=== PATIENT | male | born 1940 | race Caucasian/White ===

== ENCOUNTER → 2018-01-29 08:06 | Outpatient (CLI) | payer MEDICARE, BC, SELFPAY ==
--- NOTE | 2018-01-29 | DI.US.S_ITS ---
PROCEDURE: US RENAL COMPLETE INDICATIONS: CHECKING FOR RENAL CYST TECHNIQUE: Real-time scanning was performed of the kidneys and bladder, with image documentation. COMPARISON: [facility], MR, MR LUMBAR SPINE WITHOUT CONTRAST, 10/08/2014, 13:39. FINDINGS: Kidneys: Kidneys are normal in size. Right kidney measures 10.3 cm long; left kidney measures 10.2 cm long. Right renal cortical thickness is 1.4 cm; left renal cortical thickness is 1.6 cm. Renal cortical echotexture is normal. No hydronephrosis or nephrolithiasis. No suspicious solid mass lesions. Right renal superior pole cyst measuring 2.2 cm and there is a left renal superior pole cyst measuring up to 3.0 cm. Bladder: Pre-void bladder volume is 111 mL. Post-void residual is 4.0 mL. Pre-void images demonstrate no intraluminal masses or stones. On pre-void images, bilateral ureteral jets are noted with color Doppler interrogation. (Of note, ureteral jets may not be detectable in up to 25% of cases due to insufficient differences in specific gravity between ureteral and bladder urine). Miscellaneous: No free pelvic fluid. IMPRESSION: Bilateral renal cysts otherwise normal appearance of the kidneys. Dictated by: Scooter KEENAN Interpreted: Yasmeen Brumfield MD on 01/29/2018 at 16:03 Approved by: Yasmeen Brumfield MD, PhD on 01/29/2018 at 16:27
== END ==
PROVIDERS: PCP Nurse Practitioner Family; Visit Provider Nurse Practitioner Family
DX: M54.5 Low back pain (principal); N28.1 Cyst of kidney, acquired
CPT/HCPCS: 76770

== ENCOUNTER → 2018-02-01 19:06 | Outpatient (CLI) | payer MEDICARE, BC, SELFPAY ==
--- NOTE | 2018-02-01 | DI.MRI.S_ITS ---
PROCEDURE: MR LUMBAR SPINE WO CON INDICATIONS: LOW BACK PAIN, CHECKING FOR RENAL CYSTS TECHNIQUE: Noncontrast sagittal T1 spin echo and T2 fast echo, sagittal STIR, axial T1 and T2 fast spin echo through the lumbar spine. In cases with scoliosis, additional coronal T2 fast spin echo may be performed. COMPARISON: [facility], , US RENAL COMPLETE, 01/29/2018, 13:05. FINDINGS: Image quality: Excellent. Alignment and Curvature: There is mild L1-L2 and L2-L3 retrolisthesis. There is trace L3-L4 retrolisthesis. There is trace L4-L5 anterolisthesis. Convex left curvature lumbar spine is noted. Bone Marrow: Reactive endplate change is noted adjacent to the L2-L3, L3-L4 and L5-S1 discs. No acute vertebral body compression fractures. Spinal Cord: Conus medullaris terminates at the L1 level. Visualized cord demonstrates normal signal and size. Paraspinous Soft Tissues: No paravertebral masses. Bilateral renal cysts are noted. L1-L2: Loss of disc signal and height. Mild, diffuse disc bulge. Mild bilateral facet hypertrophy. Mild narrowing of the central canal. Mild bilateral neural foraminal narrowing. No neural impingement. L2-L3: Loss of disc signal and slight loss of disc height. Moderate, diffuse disc bulge. Mild bilateral facet hypertrophy. Moderate narrowing of the central canal. Moderate bilateral neural foraminal narrowing. No neural impingement. L3-L4: Loss of disc signal and height. Mild, diffuse disc bulge. Mild facet and moderate ligamentum flavum hypertrophy. Moderate narrowing of the central canal. Moderate right and [id number] left neural foraminal narrowing. No neural impingement. L4-L5: Loss of disc signal. Mild diffuse disc bulge. Severe bilateral facet hypertrophy. Mild ligamentum flavum hypertrophy. Moderate to severe narrowing of the central canal. Mild to moderate right and moderate left neural foraminal narrowing. L5-S1: Loss of disc signal and height. Mild, diffuse disc bulge. Mild right and moderate left facet hypertrophy. No central stenosis. Moderate right and severe left neural foraminal narrowing with flattening of the exiting left L5 nerve root. IMPRESSION: 1. Multilevel degenerative disc disease. 2. Multilevel facet arthropathy. 3. Moderate to severe L4-L5 central canal narrowing. Moderate L2-L3 and L3-L4 central canal narrowing. Mild L1-L2 Central canal narrowing. 4. Moderate right and severe left L5-S1 neural foraminal narrowing. Moderate right and moderate to severe left L3-L4 neural foraminal narrowing. Moderate bilateral L2-L3 neural foraminal narrowing. [id number] right and moderate left L4-L5 neural foraminal narrowing. Mild bilateral L1-L2 neural foraminal narrowing. 5. Flattened deformity exiting left L5 nerve root secondary to neural foraminal narrowing. Please correlate with clinical data. 6. Bilateral renal cysts which are incompletely characterized by lumbar spine MRI. Renal cysts are are not significantly changed compared to prior renal ultrasound. If there is clinical concern for a renal cystic neoplasm, then CT scan of the abdomen with and without contrast (renal protocol) should be considered for further evaluation. Dictated by: Yasmeen Brumfield MD, PhD on 02/02/2018 at 9:27 Approved by: Yasmeen Brumfield MD, PhD on 02/02/2018 at 9:42
== END ==
PROVIDERS: PCP Nurse Practitioner Family; Visit Provider Orthopaedic Surgery
DX: M54.5 Low back pain (principal); N28.1 Cyst of kidney, acquired; M51.36 Other intervertebral disc degeneration, lumbar region; M51.37 Other intervertebral disc degeneration, lumbosacral region; M47.816 Spondylosis without myelopathy or radiculopathy, lumbar region; M47.817 Spondylosis without myelopathy or radiculopathy, lumbosacral region; M48.061 Spinal stenosis, lumbar region without neurogenic claudication; M48.07 Spinal stenosis, lumbosacral region
CPT/HCPCS: 72148

== ENCOUNTER → 2018-08-16 09:41 | Outpatient (CLI) | payer MEDICARE, BC, SELFPAY ==
--- NOTE | 2018-08-16 | DI.US.S_ITS ---
PROCEDURE: US RENAL COMPLETE INDICATIONS: 6 MONTH RENAL CYST FOLLOW UP TECHNIQUE: Real-time scanning was performed of the kidneys and bladder, with image documentation. COMPARISON: [facility], , RENAL COMPLETE, 01/29/2018, 13:05. FINDINGS: Kidneys: Kidneys are normal in size. Right kidney measures 10.7 cm long; left kidney measures 9.9 cm long. Right renal cortical thickness is 1.1 cm; left renal cortical thickness is 1.3 cm. Renal cortical echotexture is normal. No hydronephrosis or nephrolithiasis. No suspicious solid mass lesions. There is a simple appearing 2.2 cm cyst superior right kidney. The superior pole the left kidney, there is a 2.7 cm simple appearing cyst seen. Bladder: Pre-void bladder volume is 258 mL. Post-void residual is 31 mL. Pre-void images demonstrate no intraluminal masses or stones. On pre-void images, both ureteral jets are noted with color Doppler interrogation. (Of note, ureteral jets may not be detectable in up to 25% of cases due to insufficient differences in specific gravity between ureteral and bladder urine). Miscellaneous: No free pelvic fluid. IMPRESSION: Bilateral simple appearing cysts are seen, which are similar to the prior examination. Small post residual, 31 cc. Dictated by: Anibal Ragsdale M.D. on 08/16/2018 at 11:52 Approved by: Anibal Ragsdale M.D. on 08/16/2018 at 11:53
== END ==
PROVIDERS: PCP Nurse Practitioner Family; Visit Provider Nurse Practitioner Family
DX: N28.1 Cyst of kidney, acquired (principal)
CPT/HCPCS: 76770

== ENCOUNTER 2018-08-22 07:58 | Emergency (ER) | payer MEDICARE, BC, SELFPAY ==
[2018-08-22 08:08] VITALS: BP 98/59; PULSE 82; RESP 18; TEMP 36.8; O2SAT 100; BMI 26.4
[2018-08-22 08:30] VITALS: BP 89/55; PULSE 78; RESP 17; O2SAT 94
[2018-08-22 08:50] VITALS: BP 89/39; PULSE 70; RESP 18; O2SAT 94
[2018-08-22 09:01] VITALS: BP 94/53; PULSE 78; RESP 18; O2SAT 98
--- NOTE | 2018-08-22 09:09 | ED.MALEGU ---
HPI - Male Genitourinary General Chief complaint: Urogenital-Male Stated complaint: May have flu, can't pee Time Seen by Provider: 08/22/18 08:35 Source: patient and family Mode of arrival: ambulatory Limitations: no limitations History of Present Illness HPI Narrative: Patient comes emergency department complaining of chills, body aches, and the urge to urinate but being unable to do so. Patient states that he has been able to get only a small amount of urine out, and there is some dysuria associated with this. Patient is known to have a history of benign prostatic hypertrophy, but states he has never had an issue with urination before. No measured fevers. No nausea or vomiting. No diarrhea. No cough, sore throat, rhinorrhea. No headaches. No other complaints at this time. Patient does note that he does not think he has been drinking very much lately because he has not felt like it. Related Data Home Medications Medication Instructions Recorded Confirmed aspirin [Enteric Coated Aspirin] 81 mg PO DAILY 08/22/18 08/22/18 atorvastatin 40 mg PO QPM 08/22/18 08/22/18 clopidogrel [Plavix] 75 mg PO DAILY 08/22/18 08/22/18 metoprolol tartrate 25 mg PO DAILY 08/22/18 08/22/18 tvmlknkgjwzf-sakvzcra-[id number] 1 tab PO DAILY 08/22/18 08/22/18 omeprazole 10 mg PO DAILY 08/22/18 08/22/18 tamsulosin 0.4 mg PO DAILY 08/22/18 08/22/18 Previous Rx's Medication Instructions Recorded ciprofloxacin HCl [Cipro] 500 mg PO BID #14 tab 08/22/18 Allergies Allergy/AdvReac Type Severity Reaction Status Date / Time No Known Drug Allergies Allergy Verified 08/22/18 08:16 Review of Systems Constitutional Reports body ache(s), Denies chills, Denies fever(s), Denies lethargy and Denies weakness Comments: Chills Eyes Denies change in vision, Denies eye discharge, Denies irritation and Denies loss of vision ENT Ears, Nose, Mouth, and Throat: Denies change in voice, Denies neck pain and Denies sore throat Cardiovascular Denies chest pain, Denies irregular heart rhythm, Denies lightheadedness, Denies palpitations, Denies dyspnea, Denies dyspnea on exertion and Denies orthopnea Respiratory Denies cough, Denies dyspnea, Denies dyspnea on exertion and Denies wheezing Gastrointestinal Gastrointestinal: Denies abdominal pain, Denies change in bowel habits, Denies diarrhea, Denies nausea and Denies vomiting Genitourinary Denies hematuria, Reports difficulty urinating, Denies flank pain, Denies urinary incontinence and Reports urinary urgency Musculoskeletal Denies neck pain Integumentary/Breasts Denies pruritus, Denies erythema, Denies rash and Denies wounds Neurologic Denies confusion, Denies loss of vision and Denies weakness Psychiatric Denies anxiety, Denies confusion, Denies depression, Denies homicidal ideation and Denies suicidal ideation Endocrine Denies palpitations Hematologic/Lymphatic Denies easy bruising Allergic/Immunologic Denies wheezing [facility] Medical History Hyperlipidemia (Acute) HTN (hypertension) (Acute) Surgical History No pertinent past surgical history (Acute) Social History Smoking Status: Former smoker Social History Smoking Status: Former smoker Exam Initial Vital Signs Initial Vital Signs: Vital Signs Temperature 98.3 F 08/22/18 08:08 Pulse Rate 82 08/22/18 08:08 Respiratory Rate 18 08/22/18 08:08 Blood Pressure 98/59 L 08/22/18 08:08 Pulse Oximetry 100 08/22/18 08:08 Const General: cooperative and well developed Nutritional Appearance: well nourished Orientation: alert, awake, oriented x3 and not confused [facility] Head: normocephalic and atraumatic Ears: external ears normal Nose: external nose normal and No nasal discharge Face and sinus: face symmetric and No dry mucous membranes Mouth: oral mucosae normal and moist mucous membranes Teeth and gingiva: dentition normal Eyes General: appearance normal, both eyes and all related structures Eyelids: eyelids normal Conjunctivae: conjunctivae normal Sclera: sclerae normal Pupils: PERRL EOM: EOM intact bilaterally Neck Neck: normal visual inspection, trachea midline, No lymphadenopathy, No midline deformity and No JVD Lymphatic: No lymphedema Chest Chest: normal inspection of the chest Resp Effort & Inspection: normal respiratory effort, able to speak in complete sentences, no respiratory distress and no use of accessory muscles Auscultation: clear to auscultation bilaterally, no rales, no rhonchi and no wheezes Cardio Rate: regular rate Rhythm: regular rhythm Heart Sounds: no click, no gallops, no murmurs and no rubs Pulses: normal peripheral pulses GI Inspection: non-distended Palpation: soft, no hepatosplenomegaly, No guarding, No pulsatile mass and No tender Auscultation: normal bowel sounds Back/Spine/Pelvis Back: No CVA tenderness Cervical Spine: cervical ROM normal and No pain with cervical ROM Thoracic/Lumbar Spine: thoracic and lumbar spine normal to inspection Skin General: no rashes or lesions noted, No jaundice and No petechiae Neuro General: alert, oriented x3, gait normal and no focal motor deficits Speech: speech normal Extrem General: full ROM, no clubbing, cyanosis or edema, no pedal edema and no calf tenderness Psych Appearance: well kempt Mental Status: mental status grossly normal Attitude: cooperative Thought Content: normal and suicidality Judgment: judgment good Course Course Narrative: The patient was started on IV fluids, as I suspected, given that his bladder scan only showed 65 cc of urine, that he was somewhat dehydrated. Patient was able to spontaneously urinate after this. Patient was worked up with labs and urinalysis, and found to be positive for urinary tract infection. He was treated with ciprofloxacin for this. I discussed with the patient and his the findings and symptomatic management at home. We have also discussed the usual indications for return. We have discussed that if his prostatic hypertrophy does become an issue as far as recurrent urinary retention, that he should probably follow up with Urology. Patient has been given contact information for Urology Clinic in case he needs this follow-up. Orders Ordered: Discontinued Medications Ciprofloxacin (Cipro) 500 mg PO NOW ONE Stop: 08/22/18 10:14 Last Admin: 08/22/18 10:35 Dose: 500 mg Sodium Chloride (Normal Saline 0.9%) 1,000 mls @ 1,000 mls/hr IV BOLUS ONE Stop: 08/22/18 10:08 Last Infusion: 08/22/18 10:35 Dose: 0 mls/hr Admin: 08/22/18 09:25 Dose: 1,000 mls/hr Vital Signs - 8 hr 08/22/18 08:08 08/22/18 08:30 08/22/18 09:01 Temperature 98.3 F Pulse Rate 82 78 78 Respiratory Rate 18 17 18 Blood Pressure 98/59 L Blood Pressure [Right Arm] 89/55 L 94/53 L Pulse Oximetry 100 94 98 MDM - Male Genitourinary Medical Records Attestation: I reviewed the patient's medical records. Lab Data Attestation: I reviewed the patient's lab results. Result diagrams: 08/22/18 09:10 08/22/18 09:10 Lab Results 08/22/18 08/22/18 08/22/18 Range/Units 09:10 09:10 09:10 WBC 17.2 H (4.5-11.0) X10^3/uL RBC 3.80 L (4.5-5.9) X10^6/uL Hgb 12.4 L (13.5-17.5) g/dL Hct 36.7 L (41-53) % MCV 96.6 (80-100) fL MCH 32.6 (26-34) PG MCHC 33.7 (30-36) % RDW 13.0 (11.6-14.8) % Plt Count 158 (150-400) X10^3/uL Neut % (Auto) 87.2 H (50-75) % Lymph % (Auto) 4.2 L (25-40) % [place] % (Auto) 8.3 (3-14) % Eos % (Auto) 0.1 L (2-4) % Baso % (Auto) 0.2 (0-2) % Neut # (Auto) 64827 H (3898-0979) /uL Lymph # (Auto) 700 L (5299-0535) /uL [place] # (Auto) 1400 H (0-900) /uL Eos # (Auto) 0 (0-450) /uL Baso # (Auto) 0 (0-100) /uL Sodium 137 (137-145) mmol/L Potassium 4.0 (3.4-5.1) mmol/L Chloride 102 (98-107) mmol/L Carbon Dioxide 25 (22-32) mmol/L BUN 25 H (9-20) mg/dL Creatinine 1.30 H (0.66-1.25) mg/dL Estimated GFR 53.7 L (>60) mL/min BUN/Creatinine Ratio 19.2 (6-22) Glucose 116 H (80-110) mg/dL Lactate 1.2 (0.7-2.1) mmol/L Calcium 9.4 (8.4-10.2) mg/dL Total Bilirubin 1.5 H (0.2-1.3) mg/dL AST 24 (17-59) IU/L ALT 29 (21-72) IU/L Alkaline Phosphatase 73 (38-126) U/L Total Protein 7.4 (6.3-8.2) g/dL Albumin 4.1 (3.5-5.0) g/dL Globulin 3.3 (1.7-4.1) g/dL Albumin/Globulin Ratio 1.2 (1.0-2.8) Urine Color Urine Appearance Urine pH (4.5-8.0) Ur Specific [place] (1.000-1.035) Urine Protein (Negative) Urine Glucose (UA) (Negative) g/dL Urine Ketones (NEGATIVE) Urine Occult Blood (Negative) Urine Nitrate (Negative) Urine Bilirubin (NEGATIVE) Urine Urobilinogen (0.2) E.U./dL Ur Leukocyte Esterase (NEGATIVE) Urine RBC (0-5/HPF) Urine WBC (0-5/HPF) Ur Squamous Epith Cells (0-5/HPF) Urine Bacteria (None) Ur Culture Indicated? 08/22/18 Range/Units 09:21 WBC (4.5-11.0) X10^3/uL RBC (4.5-5.9) X10^6/uL Hgb (13.5-17.5) g/dL Hct (41-53) % MCV (80-100) fL MCH (26-34) PG MCHC (30-36) % RDW (11.6-14.8) % Plt Count (150-400) X10^3/uL Neut % (Auto) (50-75) % Lymph % (Auto) (25-40) % [place] % (Auto) (3-14) % Eos % (Auto) (2-4) % Baso % (Auto) (0-2) % Neut # (Auto) (6743-7187) /uL Lymph # (Auto) (4053-2162) /uL [place] # (Auto) (0-900) /uL Eos # (Auto) (0-450) /uL Baso # (Auto) (0-100) /uL Sodium (137-145) mmol/L Potassium (3.4-5.1) mmol/L Chloride (98-107) mmol/L Carbon Dioxide (22-32) mmol/L BUN (9-20) mg/dL Creatinine (0.66-1.25) mg/dL Estimated GFR (>60) mL/min BUN/Creatinine Ratio (6-22) Glucose (80-110) mg/dL Lactate (0.7-2.1) mmol/L Calcium (8.4-10.2) mg/dL Total Bilirubin (0.2-1.3) mg/dL AST (17-59) IU/L ALT (21-72) IU/L Alkaline Phosphatase (38-126) U/L Total Protein (6.3-8.2) g/dL Albumin (3.5-5.0) g/dL Globulin (1.7-4.1) g/dL Albumin/Globulin Ratio (1.0-2.8) Urine Color Yellow Urine Appearance Cloudy Urine pH 5.0 (4.5-8.0) Ur Specific [place] 1.025 (1.000-1.035) Urine Protein 1+ H (Negative) Urine Glucose (UA) Negative (Negative) g/dL Urine Ketones Negative (NEGATIVE) Urine Occult Blood 3+ H (Negative) Urine Nitrate Positive (Negative) Urine Bilirubin Negative (NEGATIVE) Urine Urobilinogen 0.2 (0.2) E.U./dL Ur Leukocyte Esterase 2+ H (NEGATIVE) Urine RBC 0-1/hpf (0-5/HPF) Urine WBC >100/hpf H (0-5/HPF) Ur Squamous Epith Cells None seen (0-5/HPF) Urine Bacteria Many (>30) H (None) Ur Culture Indicated? Specimen cultured Discharge Plan Departure Patient Disposition: Home Clinical Impression: Urinary tract infection Qualifiers: Urinary tract infection type: acute cystitis Hematuria presence: without hematuria Qualified Code(s): N30.00 - Acute cystitis without hematuria Discharge Date/Time: 08/22/18 10:40 Interventions: ED Discharge Assessment Last Done: 08/22/18 10:40 Instructions: DI for Urinary Tract Infection (UTI) Activity Restrictions/Additional Instructions: Urinalysis showed strong evidence of infection. Please take the antibiotics as directed, and drink plenty of fluids. Prescriptions: New ciprofloxacin HCl [Cipro] 500 mg tablet 500 mg PO BID Qty: 14 RF: 0 No Action atorvastatin 40 mg Tablet 40 mg PO QPM RF: 0 aspirin [Enteric Coated Aspirin] 81 mg Tablet,Delayed Release (Dr/Ec) 81 mg PO DAILY RF: 0 clopidogrel [Plavix] 75 mg Tablet 75 mg PO DAILY RF: 0 omeprazole 10 mg Capsule,Delayed Release(Dr/Ec) 10 mg PO DAILY RF: 0 tamsulosin 0.4 mg Capsule 0.4 mg PO DAILY RF: 0 alzmxejfyapm-scepkltc-vyonhq Tablet 1 tab PO DAILY RF: 0 metoprolol tartrate 25 mg Tablet 25 mg PO DAILY RF: 0 Referrals: [facility] Urology [Provider Group] Brianne Summers ARNP [Primary Care Provider] -
[2018-08-22] MEDS: SODIUM CHLORIDE 0.9% 1,000 ML 1000 ML IV (09:25)
[2018-08-22 09:32] LABS: Add Manual Diff / Slide Review NO; Basophils Absolute Auto 0 /uL (0-100); Basophils Percent Auto 0.2 % (0-2); Eosinophils Absolute Auto 0 /uL (0-450); Eosinophils Percent Auto 0.1 % (2-4); Hematocrit 36.7 % (41-53); Hemoglobin 12.4 g/dL (13.5-17.5); Lymphocytes Absolute Auto 700 /uL (1100-4500); Lymphocytes Percent Auto 4.2 % (25-40); Mean Corpuscular HGB Conc 33.7 % (30-36); Mean Corpuscular Hemoglobin 32.6 PG (26-34); Mean Corpuscular Volume 96.6 fL (80-100); Monocytes Absolute Auto 1400 /uL (0-900); Monocytes Percent Auto 8.3 % (3-14); Neutrophils Absolute Auto 15000 /uL (1500-7000); Neutrophils Percent Auto 87.2 % (50-75); Platelet Count 158 X10^3/uL (150-400); White Blood Cell Count 17.2 X10^3/uL (4.5-11.0)
[2018-08-22 09:34] LABS: Appearance Urine UA CLOUDY; Bilirubin Urine UA NEGATIVE (NEGATIVE); Color Urine UA YELLOW; Glucose Urine UA NEGATIVE (Negative); Ketones Urine UA NEGATIVE (NEGATIVE); Leukocyte Esterase Urine UA 2+ (NEGATIVE); Nitrite Urine UA POSITIVE (Negative); Occult Blood Urine UA 3+ (Negative); Protein Urine UA 1+ (Negative); Specific Gravity Urine UA 1.025 (1.000-1.035); Urobilinogen Urine UA 0.2 E.U./dL (0.2)
[2018-08-22 09:43] LABS: Bacteria Urine Many (>30); Culture Indicated Urine Specimen Cultured; RBC Urine 0-1/HPF (0-5/HPF); Squamous Epithelial Cell Urine None Seen (0-5/HPF); WBC Urine >100/HPF (0-5/HPF)
[2018-08-22 09:45] LABS: Lactate (Lactic Acid) 1.2 mmol/L (0.7-2.1)
[2018-08-22 09:46] LABS: Alanine Aminotransferase 29 IU/L (21-72); Albumin 4.1 g/dL (3.5-5.0); Albumin Globulin Ratio 1.2 (1.0-2.8); Alkaline Phosphatase 73 U/L (38-126); Aspartate Aminotransferase 24 IU/L (17-59); BUN Creatinine Ratio 19.2 (6-22); Bilirubin Total 1.5 mg/dL (0.2-1.3); Blood Urea Nitrogen 25 mg/dL (9-20); Calcium 9.4 mg/dL (8.4-10.2); Carbon Dioxide 25 mmol/L (22-32); Chloride 102 mmol/L (98-107); Estimated Glomerular Filt Rate 53.7 mL/min (>60); Globulin 3.3 g/dL (1.7-4.1); Glucose 116 mg/dL (80-110); HEMOLYSIS < 15 (0-50); Sodium 137 mmol/L (137-145); Total Protein 7.4 g/dL (6.3-8.2)
[2018-08-22 10:18] VITALS: BP 109/58; PULSE 64; RESP 14; TEMP 36.3; O2SAT 98
[2018-08-22] MEDS: CIPROFLOXACIN 500 MG TABLET PO (10:35)
--- NOTE | 2018-08-24 12:00 | ED_ITS ---
HPI - Male Genitourinary General Chief complaint: Urogenital-Male Stated complaint: May have flu, can't pee Time Seen by Provider: 08/22/18 08:35 Source: patient and family Mode of arrival: ambulatory Limitations: no limitations History of Present Illness HPI Narrative: Patient comes emergency department complaining of chills, body aches, and the urge to urinate but being unable to do so. Patient states that he has been able to get only a small amount of urine out, and there is some dysuria associated with this. Patient is known to have a history of benign prostatic hypertrophy, but states he has never had an issue with urination before. No measured fevers. No nausea or vomiting. No diarrhea. No cough, sore throat, rhinorrhea. No headaches. No other complaints at this time. Patient does note that he does not think he has been drinking very much lately because he has not felt like it. Related Data Home Medications Medication Instructions Recorded Confirmed aspirin [Enteric Coated Aspirin] 81 mg PO DAILY 08/22/18 08/22/18 atorvastatin 40 mg PO QPM 08/22/18 08/22/18 clopidogrel [Plavix] 75 mg PO DAILY 08/22/18 08/22/18 metoprolol tartrate 25 mg PO DAILY 08/22/18 08/22/18 hpwsefteyrbk-ywrxnptv-vtkhto 1 tab PO DAILY 08/22/18 08/22/18 omeprazole 10 mg PO DAILY 08/22/18 08/22/18 tamsulosin 0.4 mg PO DAILY 08/22/18 08/22/18 Previous Rx's Medication Instructions Recorded ciprofloxacin HCl [Cipro] 500 mg PO BID #14 tab 08/22/18 Allergies Allergy/AdvReac Type Severity Reaction Status Date / Time No Known Drug Allergies Allergy Verified 08/22/18 08:16 Review of Systems Constitutional Reports body ache(s), Denies chills, Denies fever(s), Denies lethargy and Denies weakness Comments: Chills Eyes Denies change in vision, Denies eye discharge, Denies irritation and Denies loss of vision ENT Ears, Nose, Mouth, and Throat: Denies change in voice, Denies neck pain and Denies sore throat Cardiovascular Denies chest pain, Denies irregular heart rhythm, Denies lightheadedness, Denies palpitations, Denies dyspnea, Denies dyspnea on exertion and Denies orthopnea Respiratory Denies cough, Denies dyspnea, Denies dyspnea on exertion and Denies wheezing Gastrointestinal Gastrointestinal: Denies abdominal pain, Denies change in bowel habits, Denies diarrhea, Denies nausea and Denies vomiting Genitourinary Denies hematuria, Reports difficulty urinating, Denies flank pain, Denies urinary incontinence and Reports urinary urgency Musculoskeletal Denies neck pain Integumentary/Breasts Denies pruritus, Denies erythema, Denies rash and Denies wounds Neurologic Denies confusion, Denies loss of vision and Denies weakness Psychiatric Denies anxiety, Denies confusion, Denies depression, Denies homicidal ideation and Denies suicidal ideation Endocrine Denies palpitations Hematologic/Lymphatic Denies easy bruising Allergic/Immunologic Denies wheezing [facility] Medical History Hyperlipidemia (Acute) HTN (hypertension) (Acute) Surgical History No pertinent past surgical history (Acute) Social History Smoking Status: Former smoker Social History Smoking Status: Former smoker Exam Initial Vital Signs Initial Vital Signs: Vital Signs Temperature 98.3 F 08/22/18 08:08 Pulse Rate 82 08/22/18 08:08 Respiratory Rate 18 08/22/18 08:08 Blood Pressure 98/59 L 08/22/18 08:08 Pulse Oximetry 100 08/22/18 08:08 Const General: cooperative and well developed Nutritional Appearance: well nourished Orientation: alert, awake, oriented x3 and not confused [facility] Head: normocephalic and atraumatic Ears: external ears normal Nose: external nose normal and No nasal discharge Face and sinus: face symmetric and No dry mucous membranes Mouth: oral mucosae normal and moist mucous membranes Teeth and gingiva: dentition normal Eyes General: appearance normal, both eyes and all related structures Eyelids: eyelids normal Conjunctivae: conjunctivae normal Sclera: sclerae normal Pupils: PERRL EOM: EOM intact bilaterally Neck Neck: normal visual inspection, trachea midline, No lymphadenopathy, No midline deformity and No JVD Lymphatic: No lymphedema Chest Chest: normal inspection of the chest Resp Effort & Inspection: normal respiratory effort, able to speak in complete sentences, no respiratory distress and no use of accessory muscles Auscultation: clear to auscultation bilaterally, no rales, no rhonchi and no wheezes Cardio Rate: regular rate Rhythm: regular rhythm Heart Sounds: no click, no gallops, no murmurs and no rubs Pulses: normal peripheral pulses GI Inspection: non-distended Palpation: soft, no hepatosplenomegaly, No guarding, No pulsatile mass and No te nder Auscultation: normal bowel sounds Back/Spine/Pelvis Back: No CVA tenderness Cervical Spine: cervical ROM normal and No pain with cervical ROM Thoracic/Lumbar Spine: thoracic and lumbar spine normal to inspection Skin General: no rashes or lesions noted, No jaundice and No petechiae Neuro General: alert, oriented x3, gait normal and no focal motor deficits Speech: speech normal Extrem General: full ROM, no clubbing, cyanosis or edema, no pedal edema and no calf tenderness Psych Appearance: well kempt Mental Status: mental status grossly normal Attitude: cooperative Thought Content: normal and suicidality Judgment: judgment good Course Course Narrative: The patient was started on IV fluids, as I suspected, given that his bladder scan only showed 65 cc of urine, that he was somewhat dehydrate d. Patient was able to spontaneously urinate after this. Patient was worked up with labs and urinalysis, and found to be positive for urinary tract infection. He was treated with ciprofloxacin for this. I discussed with the patient and his the findings and symptomatic management at home. We have also discussed the usual indications for return. We have discussed that if his prostatic hypertrophy does become an issue as far as recurrent urinary retention, that he should probably follow up with Urology. Patient has been given contact information for Urology Clinic in case he needs this follow-up. Orders Ordered: Discontinued Medications Ciprofloxacin (Cipro) 500 mg PO NOW ONE Stop: 08/22/18 10:14 Last Admin: 08/22/18 10:35 Dose: 500 mg Sodium Chloride (Normal Saline 0.9%) 1,000 mls @ 1,000 mls/hr IV BOLUS ONE Stop: 08/22/18 10:08 Last Infusion: 08/22/18 10:35 Dose: 0 mls/hr Admin: 08/22/18 09:25 Dose: 1,000 mls/hr Vital Signs - 8 hr 08/22/18 08:08 08/22/18 08:30 08/22/18 09:01 Temperature 98.3 F Pulse Rate 82 78 78 Respiratory Rate 18 17 18 Blood Pressure 98/59 L Blood Pressure [Right Arm] 89/55 L 94/53 L Pulse Oximetry 100 94 98 MDM - Male Genitourinary Medical Records Attestation: I reviewed the patient's medical records. Lab Data Attestation: I reviewed the patient's lab results. Result diagrams: 08/22/18 09:10 08/22/18 09:10 Lab Results 08/22/18 08/22/18 08/22/18 Range/Units 09:10 09:10 09:10 WBC 17.2 H (4.5-11.0) X10^3/uL RBC 3.80 L (4.5-5.9) X10^6/uL Hgb 12.4 L (13.5-17.5) g/dL Hct 36.7 L (41-53) % MCV 96.6 (80-100) fL MCH 32.6 (26-34) PG MCHC 33.7 (30-36) % RDW 13.0 (11.6-14.8) % Plt Count 158 (150-400) X10^3/uL Neut % (Auto) 87.2 H (50-75) % Lymph % (Auto) 4.2 L (25-40) % [place] % (Auto) 8.3 (3-14) % Eos % (Auto) 0.1 L (2-4) % Baso % (Auto) 0.2 (0-2) % Neut # (Auto) 03342 H (5582-3068) /uL Lymph # (Auto) 700 L (8437-0084) /uL [place] # (Auto) 1400 H (0-900) /uL Eos # (Auto) 0 (0-450) /uL Baso # (Auto) 0 (0-100) /uL Sodium 137 (137-145) mmol/L Potassium 4.0 (3.4-5.1) mmol/L Chloride 102 (98-107) mmol/L Carbon Dioxide 25 (22-32) mmol/L BUN 25 H (9-20) mg/dL Creatinine 1.30 H (0.66-1.25) mg/dL Estimated GFR 53.7 L (>60) mL/min BUN/Creatinine Ratio 19.2 (6-22) Glucose 116 H (80-110) mg/dL Lactate 1.2 (0.7-2.1) mmol/L Calcium 9.4 (8.4-10.2) mg/dL Total Bilirubin 1.5 H (0.2-1.3) mg/dL AST 24 (17-59) IU/L ALT 29 (21-72) IU/L Alkaline Phosphatase 73 (38-126) U/L Total Protein 7.4 (6.3-8.2) g/dL Albumin 4.1 (3.5-5.0) g/dL Globulin 3.3 (1.7-4.1) g/dL Albumin/Globulin Ratio 1.2 (1.0-2.8) Urine Color Urine Appearance Urine pH (4.5-8.0) Ur Specific [place] (1.000-1.035) Urine Protein (Negative) Urine Glucose (UA) (Negative) g/dL Urine Ketones (NEGATIVE) Urine Occult Blood (Negative) Urine Nitrate (Negative) Urine Bilirubin (NEGATIVE) Urine Urobilinogen (0.2) E.U./dL Ur Leukocyte Esterase (NEGATIVE) Urine RBC (0-5/HPF) Urine WBC (0-5/HPF) Ur Squamous Epith Cells (0-5/HPF) Urine Bacteria (None) Ur Culture Indicated? 08/22/18 Range/Units 09:21 WBC (4.5-11.0) X10^3/uL RBC (4.5-5.9) X10^6/uL Hgb (13.5-17.5) g/dL Hct (41-53) % MCV (80-100) fL MCH (26-34) PG MCHC (30-36) % RDW (11.6-14.8) % Plt Count (150-400) X10^3/uL Neut % (Auto) (50-75) % Lymph % (Auto) (25-40) % [place] % (Auto) (3-14) % Eos % (Auto) (2-4) % Baso % (Auto) (0-2) % Neut # (Auto) (5465-1948) /uL Lymph # (Auto) (8385-6069) /uL [place] # (Auto) (0-900) /uL Eos # (Auto) (0-450) /uL Baso # (Auto) (0-100) /uL Sodium (137-145) mmol/L Potassium (3.4-5.1) mmol/L Chloride (98-107) mmol/L Carbon Dioxide (22-32) mmol/L BUN (9-20) mg/dL Creatinine (0.66-1.25) mg/dL Estimated GFR (>60) mL/min BUN/Creatinine Ratio (6-22) Glucose (80-110) mg/dL Lactate (0.7-2.1) mmol/L Calcium (8.4-10.2) mg/dL Total Bilirubin (0.2-1.3) mg/dL AST (17-59) IU/L ALT (21-72) IU/L Alkaline Phosphatase (38-126) U/L Total Protein (6.3-8.2) g/dL Albumin (3.5-5.0) g/dL Globulin (1.7-4.1) g/dL Albumin/Globulin Ratio (1.0-2.8) Urine Color Yellow Urine Appearance Cloudy Urine pH 5.0 (4.5-8.0) Ur Specific [place] 1.025 (1.000-1.035) Urine Protein 1+ H (Negative) Urine Glucose (UA) Negative (Negative) g/dL Urine Ketones Negative (NEGATIVE) Urine Occult Blood 3+ H (Negative) Urine Nitrate Positive (Negative) Urine Bilirubin Negative (NEGATIVE) Urine Urobilinogen 0.2 (0.2) E.U./dL Ur Leukocyte Esterase 2+ H (NEGATIVE) Urine RBC 0-1/hpf (0-5/HPF) Urine WBC >100/hpf H (0-5/HPF) Ur Squamous Epith Cells None seen (0-5/HPF) Urine Bacteria Many (>30) H (None) Ur Culture Indicated? Specimen cultured Discharge Plan Departure Patient Disposition: Home Clinical Impression: Urinary tract infection Qualifiers: Urinary tract infection type: acute cystitis Hematuria presence: without hematuria Qualified Code(s): N30.00 - Acute cystitis without hematuria Discharge Date/Time: 08/22/18 10:40 Interventions: ED Discharge Assessment Last Done: 08/22/18 10:40 Instructions: DI for Urinary Tract Infection (UTI) Activity Restrictions/Additional Instructions: Urinalysis showed strong evidence of infection. Please take the antibiotics as directed, and drink plenty of fluids. Prescriptions: New ciprofloxacin HCl [Cipro] 500 mg tablet 500 mg PO BID Qty: 14 RF: 0 No Action atorvastatin 40 mg Tablet 40 mg PO QPM RF: 0 aspirin [Enteric Coated Aspirin] 81 mg Tablet,Delayed Release (Dr/Ec) 81 mg PO DAILY RF: 0 clopidogrel [Plavix] 75 mg Tablet 75 mg PO DAILY RF: 0 omeprazole 10 mg Capsule,Delayed Release(Dr/Ec) 10 mg PO DAILY RF: 0 tamsulosin 0.4 mg Capsule 0.4 mg PO DAILY RF: 0 vkmchjrowngm-mqsbjleb-avsxik Tablet 1 tab PO DAILY RF: 0 metoprolol tartrate 25 mg Tablet 25 mg PO DAILY RF: 0 Referrals: [facility] [Provider Group] Brianne Summers ARNP [Primary Care Provider] -
--- NOTE | 2018-08-27 19:28 | CM.SWNOTE ---
Follow up phone call This was a routine follow up phone call. Pt reported that he is feeling better, but thinks he may still have a bit of infection and will call his PCP tomorrow as his doctor was not in today. He did not have any questions about his discharge, but said he is running out of medicaiton so will discuss this with his PCP tomorrow. Pt stated that care at the ED was excellent and was appreciative of the follow up phone call.
== END 2018-08-22 10:40 | disposition home or self-care (01) ==
PROVIDERS: Emergency Provider Emergency Medicine; PCP Nurse Practitioner Family
DX: N30.00 Acute cystitis without hematuria (principal); E86.0 Dehydration
CPT/HCPCS: 36591; 51798; 80053; 81001; 83605; 85025; 87077; 87086; 87186; 93005; 96360; 99283; 99284

== ENCOUNTER → 2018-09-28 16:04 | Outpatient (ROUT) | payer MEDICARE, BC, SELFPAY | PROVIDERS: PCP Nurse Practitioner Family; Visit Provider Nurse Practitioner Family | DX: R35.0 Frequency of micturition (principal) | CPT/HCPCS: 87086 ==

== ENCOUNTER → 2021-06-07 11:17 | Outpatient (CLI) | payer MEDICARE, BC, SELFPAY ==
[2021-06-08 11:08] LABS: Fecal Immunochemical Test Negative (Negative)
== END ==
PROVIDERS: PCP Internal Medicine; Referring Provider Surgery; Visit Provider Surgery
DX: D64.9 Anemia, unspecified (principal)
CPT/HCPCS: 82274

== ENCOUNTER → 2021-11-01 11:01 | Outpatient (CLI) | payer MEDICARE, OTHER, SELFPAY ==
--- NOTE | 2021-11-01 | DI.RAD.S_ITS ---
PROCEDURE: XR SHOULDER RT MIN 2V INDICATIONS: acute pain of right shoulder post-fall TECHNIQUE: 3 views of the shoulder were acquired. COMPARISON: None. FINDINGS: Bones: No fractures or dislocations. No suspicious bony lesions. Visualized ribs appear intact. Moderate AC joint hypertrophy present. Soft tissues: Small calcifications project adjacent to the humeral head. IMPRESSION: 1. No acute osseous abnormality. 2. Findings suggestive of calcific rotator cuff tendinopathy. Dictated by: Jordan Mendoza M.D. on 11/01/2021 at 18:17 Approved by: Jordan Mendoza M.D. on 11/01/2021 at 18:20
== END ==
PROVIDERS: PCP Internal Medicine; Referring Provider Internal Medicine; Visit Provider Internal Medicine
DX: M25.511 Pain in right shoulder (principal)
CPT/HCPCS: 73030

== ENCOUNTER → 2022-12-15 08:54 | Outpatient (CLI) | payer MEDICARE, OTHER, SELFPAY ==
--- NOTE | 2022-12-15 | DI.CT.S_ITS ---
PROCEDURE: CT ABDOMEN PELVIS WO CON INDICATIONS: Unspecified abdominal pain TECHNIQUE: After the administration of oral contrast, 5 mm thick sections acquired from the diaphragms to the symphysis. 5 mm coronal and sagittal reformats were performed. For radiation dose reduction, the following was used: automated exposure control, adjustment of mA and/or kV according to patient size. COMPARISON: None. FINDINGS: Image quality: Excellent. ABDOMEN: Lung bases: Dependent atelectasis. Heart size is normal. Coronary artery calcifications Solid organs: Liver is normal in size. Gallbladder unremarkable. Pancreas is normal in size. Spleen is normal in size. No adrenal nodules. Both kidneys are normal in size, without hydronephrosis or nephrolithiasis. Bilateral simple renal cysts. Peritoneum and bowel: Bowel loops demonstrate normal wall thickness and caliber. No free fluid or air. Nodes and vessels: No retroperitoneal or mesenteric adenopathy by size criteria. Aorta and inferior vena cava are normal in size. Miscellaneous: No ventral hernias. PELVIS: Genitourinary: Bladder wall thickness is normal. Enlarged prostate Miscellaneous: No inguinal hernias or adenopathy. Bones: No suspicious bony lesions. No vertebral body compression fractures. Moderate degenerative changes of the lumbar spine. IMPRESSION: No acute abdominopelvic findings to explain patient's symptoms. Dictated by: Montserrat Fernandez M.D. on 12/15/2022 at 18:49 Approved by: Montserrat Fernandez M.D. on 12/15/2022 at 18:52
== END ==
PROVIDERS: PCP Internal Medicine; Referring Provider Internal Medicine; Visit Provider Internal Medicine
DX: R10.9 Unspecified abdominal pain (principal); I25.10 Atherosclerotic heart disease of native coronary artery without angina pectoris; N28.1 Cyst of kidney, acquired; N40.0 Benign prostatic hyperplasia without lower urinary tract symptoms
CPT/HCPCS: 74176

== ENCOUNTER 2024-01-24 09:26 | Emergency (ER) | payer MEDICARE, OTHER, SELFPAY ==
[2024-01-24 09:30] VITALS: O2SAT 96
[2024-01-24 09:31] VITALS: BP 149/71; PULSE 89; O2SAT 96
[2024-01-24 09:35] VITALS: BP 149/71; PULSE 90; RESP 16; TEMP 36.6; O2SAT 97; BMI 26.6
--- NOTE | 2024-01-24 09:55 | ED_ITS ---
HPI - Extremity Problem General Chief complaint: Extremity Problem,Nontraumatic Stated complaint: severe hip pain,back & neck Time Seen by Provider: 01/24/24 09:53 History of Present Illness HPI Narrative: Patient is a 83-year-old male history of hypertension hyperlipidemia chronic low back and neck pain comes into the ED from home for evaluation of exacerbation of low back and neck pain. States that he is having difficulty turning his head after he woke up this morning. Denies any headache visual disturbances, denies any trauma or falls denies any numbness weakness tingling to bilateral upper and lower extremities. He is also stating that he has been having exacerbation of his chronic low back pain, states it is similar to the past where it is to the right side radiates to his anterior thigh denies any weakness or tingling to lower extremities. Denies any saddle paresthesias denies any bowel or urinary incontinence or retention. States that this has happened in the past went away after some muscle relaxers. Denies any other symptoms at this time Related Data Home Medications Medication Instructions Recorded Confirmed aspirin 81 mg tablet,delayed 81 mg PO DAILY 08/22/18 05/20/21 release (Enteric Coated Aspirin) atorvastatin 40 mg tablet 40 mg PO QPM 08/22/18 05/20/21 metoprolol tartrate 25 mg tablet 25 mg PO DAILY 08/22/18 05/20/21 lsvwkdjgzwss-xddhxykm-yfwmdy tablet 1 tab PO DAILY 08/22/18 05/20/21 omeprazole 10 mg capsule,delayed 10 mg PO DAILY 08/22/18 05/20/21 release tamsulosin 0.4 mg capsule 0.4 mg PO DAILY 08/22/18 05/20/21 ezetimibe 10 mg tablet 10 mg PO DAILY 05/20/21 05/20/21 Previous Rx's Medication Instructions Recorded diazepam 2 mg tablet (Valium) 2 mg PO BEDTIME PRN muscle spasm 5 01/24/24 days #5 tabs Allergies Allergy/AdvReac Type Severity Reaction Status Date / Time No Known Drug Allergies Allergy Verified 05/20/21 11:29 Review of Systems Review of Systems Narrative: General: Denies fever, chills, weight loss HEENT: Denies headache, eye drainage, eye irritation, head trauma, sore throat, voice change Cardiovascular: Denies any chest pain, palpitations, shortness of breath, tachycardia Respiratory: Denies any shortness of breath, cough, wheeze, stridor GI/: Denies any abdominal pain, nausea, vomiting, diarrhea, bright red blood per rectum, melanotic stools, urinary frequency, urinary retention, dysuria, hematuria MSK: Positive for neck and low back pain Skin: Denies any rashes, lesions, discoloration Neuro: Denies any headache, lightheadedness, dizziness, fainting, weakness Psych: Denies SI/HI Patient History Medical History (Updated 01/24/24 @ 12:16 by Adal Phipps DO) Hyperlipidemia HTN (hypertension) Surgical History No pertinent past surgical history Social History Smoking Status: Former smoker Smoking Status: Former smoker alcohol intake frequency: holidays/special occasions only Substance Use Type: does not use Exam Narrative Exam Narrative: General: Cooperative, comfortable, well-developed, not in acute distress HEENT: Normocephalic, atraumatic, PERRLA, normal sclera, eyelids normal, Neck: Active full range of motion, atraumatic Chest: Normal to inspection, negative crepitus, no overlying erythema ecchymosis Respiratory: Normal respiratory effort, not in acute respiratory distress, clear to auscultation bilaterally negative cough, wheeze, tachypnea, rhonchi, rales Cardiology: Regular rate rhythm negative gallop, murmur, rubs GI/: Normal to inspection, soft, nonrigid, no tenderness to palpation, exam deferred MSK: Patient with tenderness to palpation of the paraspinal muscles of the lumbar spine, patient with also tenderness to palpation of the paraspinal muscles of the cervical spine but no overlying erythema ecchymosis. Neurovascularly intact bilateral upper and lower extremities patient is able to stand bear weight ambulate at his baseline. Skin: No rashes lesions noted Neuro: Alert awake oriented x3, moves all 4 extremities spontaneously, cranial nerves intact, able to answer all questions appropriately follows commands appropriately Psych: Cooperative, negative suicidal or homicidal ideations Initial Vital Signs Initial Vital Signs: Vital Signs Pulse Oximetry 96 01/24/24 09:30 Course Orders Ordered: Discontinued Medications Dexamethasone (Dexamethasone 10 Mg/Ml Vial) 10 mg PO NOW ONE Stop: 01/24/24 09:54 Last Admin: 01/24/24 10:05 Dose: 10 mg Documented By: KANWAL Diazepam (Diazepam 2 Mg Tablet) 2 mg PO NOW ONE Stop: 01/24/24 09:54 Last Admin: 01/24/24 10:06 Dose: 2 mg Documented By: KANWAL Ketorolac Tromethamine (Ketorolac 30 Mg/Ml Vial) 15 mg IM NOW ONE Stop: 01/24/24 09:54 Last Admin: 01/24/24 10:05 Dose: 15 mg Documented By: CTS Vital Signs Vital signs: Vital Signs - 8 hr 01/24/24 09:30 01/24/24 09:31 01/24/24 09:31 Temperature Pulse Rate 89 Respiratory Rate Blood Pressure 149/71 H Pulse Oximetry 96 96 Oxygen Delivery Method 01/24/24 09:35 01/24/24 10:00 01/24/24 10:00 Temperature 97.8 F Pulse Rate 90 75 Respiratory Rate 16 Blood Pressure 149/71 H 133/71 Pulse Oximetry 97 95 Oxygen Delivery Method Room Air MDM - Extremity (Nontraumatic) MDM Narrative Medical decision making narrative: Patient is a 83-year-old male with a history of hypertension hyperlipidemia low back and neck pain presents for exacerbation of neck and back pain. Woke up and had some ?tightening/spasming of his neck.He denies any headache visual disturbances denies any cauda equina symptoms. NIH of 0, no focal deficits, is able to stand bear weight ambulate at his baseline. Patient was given analgesics and anti-inflammatories here in the emergency department with improvement. Patient will be sent home with analgesics muscle relaxers and instructed follow up with outpatient orthopedic surgery and PCP. Strict return precautions given safe for discharge home with outpatient follow up. Discharge Plan Departure Patient Disposition: Home Clinical Impression: Neck pain, Lumbar back pain Activity Restrictions/Additional Instructions: Please follow-up with your primary care doctor and orthopedic surgery Please read the discharge instructions sheet carefully and bring all papers to all doctor follow-up visits, as it may contain information that your doctor may want to see. Disease processes change and evolve, if your symptoms worsen or if you develop any new symptoms that are concerning to you please return for evaluation. Your evaluation today does not show any evidence of any life- threatening/serious illnesses requiring admission to the hospital or surgery. Please follow-up with your doctor for re-evaluation in approximately 1 day. Seek immediate medical attention for any worrisome symptoms. Prescriptions: New diazepam [Valium] 2 mg tablet 2 mg PO BEDTIME PRN (Reason: muscle spasm) 5 Days Qty: 5 0RF No Action ezetimibe 10 mg tablet 10 mg PO DAILY atorvastatin 40 mg Tablet 40 mg PO QPM aspirin [Enteric Coated Aspirin] 81 mg Tablet,Delayed Release (Dr/Ec) 81 mg PO DAILY omeprazole 10 mg Capsule,Delayed Release(Dr/Ec) 10 mg PO DAILY tamsulosin 0.4 mg Capsule 0.4 mg PO DAILY pyjghchjgsbr-vjjcklwi-gopsbt Tablet 1 tab PO DAILY metoprolol tartrate 25 mg Tablet 25 mg PO DAILY Rx Instructions: takes 1/2 tab daily Referrals: Conrado Huber MD [Primary Care Provider] - Stand Alone Forms: Patient Portal/API
[2024-01-24 10:00] VITALS: BP 133/71; PULSE 75; O2SAT 95
[2024-01-24] MEDS: KETOROLAC 30 MG/ML VIAL 15 MG IM (10:05)
[2024-01-24] MEDS: DEXAMETHASONE 10 MG/ML VIAL PO (10:05)
[2024-01-24] MEDS: diazePAM 2 MG TABLET PO (10:06)
[2024-01-24 12:37] VITALS: BP 135/88; PULSE 77; RESP 16; O2SAT 97
== END 2024-01-24 12:37 | disposition home or self-care (01) ==
PROVIDERS: Emergency Provider Student in an Organized Health Care Education/Training Program; PCP Physician Assistant
DX: M54.2 Cervicalgia (principal); M54.50 Low back pain, unspecified
CPT/HCPCS: 96372; 99283; J1100; J1885

== ENCOUNTER → 2024-05-30 11:11 | Outpatient (CLI) | payer MEDICARE, SELFPAY ==
--- NOTE | 2024-05-30 11:12 | DI.MRI.S_ITS ---
PROCEDURE: MR CERVICAL SPINE WO CON INDICATIONS: chronic neck pain TECHNIQUE: Noncontrast sagittal T1 spin echo and T2 fast spin echo, sagittal STIR, foraminal oblique sagittal T2 fast spin echo, and axial gradient echo or T2 fast spin echo through the cervical spine. COMPARISON: None. FINDINGS: Image quality: Excellent. Alignment and Curvature: There is loss of normal cervical lordosis. Bone Marrow: Marrow demonstrates normal overall signal. Mild reactive signal throughout the endplates of the cervical spine most prominently at C4-C5 and C5-C6. Spinal Cord: Visualized spinal cord has normal size and signal. No cerebellar tonsillar herniation. Paraspinous Soft Tissues: No paravertebral masses. Prevertebral soft tissues are normal in thickness. C2-C3: Congenital canal stenosis. Mild disc desiccation and diffuse disc bulge. Mild facet and uncovertebral hypertrophy. Mild canal stenosis. Mild left greater than right foraminal stenosis. C3-C4: Congenital canal stenosis. Moderate disc desiccation. Mild diffuse disc bulge. Mild facet and uncovertebral hypertrophy. Moderate canal stenosis. Severe left and moderate right foraminal stenosis. Left C4 nerve root compression. C4-C5: Congenital canal stenosis. Moderate disc height loss and desiccation. Mild diffuse disc bulge/osteophyte. Mild facet and uncovertebral hypertrophy bilaterally. Moderate to severe canal stenosis. Severe bilateral foraminal stenosis with bilateral C5 nerve root compression. C5-C6: Moderate disc height loss and desiccation. Mild diffuse disc bulge/osteophyte. Mild facet and uncovertebral hypertrophy. Congenital canal stenosis. Moderate canal stenosis. Severe bilateral foraminal stenosis with bilateral C6 nerve root compression C6-C7: Mild disc desiccation and diffuse disc bulge. Congenital canal stenosis. Mild facet and uncovertebral hypertrophy bilaterally. Mild canal stenosis. Moderate bilateral foraminal stenosis. C7-T1: Moderate disc desiccation. Mild diffuse disc bulge. Mild facet and uncovertebral hypertrophy. Mild canal stenosis. Mild bilateral foraminal stenosis. IMPRESSION: 1. Diffuse congenital canal stenosis with superimposed disc and facet disease, as well as uncovertebral hypertrophy. 2. Multilevel canal stenoses, worst at C4-C5 where there is moderate to severe canal stenosis. 3. Multilevel foraminal stenoses, worst at C3-C4, C4-C5, and C5-C6 where there is associated intraforaminal nerve root compression. Recommend correlation with clinical symptoms to ascertain relevance of these findings. Dictated by: Andrés Olsen M.D. on 05/30/2024 at 12:30 Approved by: Andrés Olsen M.D. on 05/30/2024 at 12:34
== END ==
LOC: MRI 11:12
PROVIDERS: PCP Family Medicine; Referring Provider Family Medicine; Visit Provider Family Medicine
DX: M48.02 Spinal stenosis, cervical region (principal); M47.812 Spondylosis without myelopathy or radiculopathy, cervical region; M50.31 Other cervical disc degeneration, high cervical region
CPT/HCPCS: 72141

== ENCOUNTER → 2024-06-04 10:42 | Outpatient (CLI) | payer MEDICARE, SELFPAY ==
--- NOTE | 2024-06-04 10:42 | DI.MRI.S_ITS ---
PROCEDURE: MR LUMBAR SPINE WO CON INDICATIONS: lumbar radiculopathy TECHNIQUE: Noncontrast sagittal T1 spin echo and T2 fast echo, sagittal STIR, and T2 fast spin echo through the lumbar spine. In cases with scoliosis, additional coronal T2 fast spin echo may be performed. COMPARISON: None. FINDINGS: Alignment and Curvature: Minimal degenerative listhesis noted L2-3 and L4-5 Bone Marrow: Marrow is of normal overall signal. No acute vertebral body compression fractures. Spinal Cord: Conus medullaris terminates at the L1 level. Visualized cord demonstrates normal signal and size. Paraspinous Soft Tissues: No paravertebral masses. T12-L1: No central or foraminal stenosis L1-L2: Disc bulge. Mild central stenosis. Foraminal stenosis L2-L3: Normal appearance. L3-L4: Disc bulge and arthropathy. Moderate central stenosis. Moderate bilateral foraminal stenosis L4-L5: Disc bulge, arthropathy and ligamentum flavum laxity. Severe central stenosis. Moderate bilateral foraminal stenosis. L5-S1: Arthropathy. No central stenosis. Moderate bilateral foraminal stenosis. IMPRESSION: Multilevel degenerative disc disease and arthropathy results in varying degrees of central and foraminal stenosis including severe central and moderate bilateral foraminal stenosis at L4-5 Approved by: Andrea Mcneal M.D. on 06/04/2024 at 14:03
== END ==
PROVIDERS: PCP Family Medicine; Referring Provider Family Medicine; Visit Provider Family Medicine
DX: M48.061 Spinal stenosis, lumbar region without neurogenic claudication (principal); M48.07 Spinal stenosis, lumbosacral region; M47.816 Spondylosis without myelopathy or radiculopathy, lumbar region; M47.817 Spondylosis without myelopathy or radiculopathy, lumbosacral region; M51.369 Other intervertebral disc degeneration, lumbar region without mention of lumbar back pain or lower extremity pain
CPT/HCPCS: 72148